=== PATIENT | male | born 1950 | race Caucasian/White ===

== ENCOUNTER 2016-07-11 01:03 | Emergency (ER) | payer OTHER, BC ==
--- NOTE | 2016-07-11 01:10 | PDOC ---
History of Present Illness - General Chief Complaint: Pain, Acute Stated Complaint: PAIN Time Seen by Provider: 07/11/16 01:09 - History of Present Illness Initial Comments: 07/11/16 01:23 This 66-year-old man with recent history of Lyme disease but no other significant past medical history presents with right chest wall pain after trauma. Approximately 18 hours prior to presentation, patient slipped as he was walking down a flight of stairs. Although he reached with his right hand to steady himself on the banister, he did slip down several stairs. There was no loss of consciousness. He is complaining of pain/tenderness anterior mid right chest and below the right scapula. He denies shortness of breath or cough. He also has mild pain right lateral upper neck region. He denies abdominal pain/lower extremity pain/balance problems or vertigo Patient was seen earlier this week by infectious disease doctors for left axillary rash. Patient had removed a tick from the area few days prior to onset of the rash. The patient is currently taking antibiotics for early Lyme disease. Past History - Past Medical History Allergies/Adverse Reactions: Allergies Allergy/AdvReac Type Severity Reaction Status Date / Time No Known Allergies Allergy Unverified 07/11/16 01:06 Home Medications: Ambulatory Orders Famotidine [Pepcid] 20 mg PO DAILY 07/11/16 Tramadol HCl 50 mg PO TID PRN #20 tablet MDD 3 tabs 07/11/16 Review of Systems - Review of Systems Able to Perform ROS?: Yes Comments:: 12 point review of systems is negative except for what is noted in the history of present illness *Physical Exam - Physical Exam Comments: GENERAL: Adult male, alert and oriented 3, in mild distress secondary to right chest wall pain HEAD: Normal with no signs of trauma. EYES: PERRLA, EOMI, sclera anicteric, conjunctiva clear. ENT: Ears normal, nares patent, oropharynx clear without exudates. Dry mucous membranes. NECK: Normal range of motion, supple without lymphadenopathy, JVD, or masses. LUNGS: Breath sounds equal, clear to auscultation bilaterally. No wheezes, and no crackles. No rubs heard CHEST WALL: Point tenderness ribs 5, 6, 7 anterior axillary line without crepitus or step offs palpated Tenderness right subscapular region without crepitus or step off palpated 20 cm by 30 cm erythematous, nonraised rash of the left axillary region; faint erythematous central area HEART:Regular rate and rhythm, normal S1 and S2 without murmur, rub or gallop. ABDOMEN:.normal bowel sounds No guarding,tenderness or rebound.No masses No distention. EXTREMITIES: Normal range of motion, no edema. No clubbing or cyanosis. No erythema, or tenderness. NEUROLOGICAL: Cranial nerves II through XII grossly intact. Normal speech. No focal neurological deficits. MUSCULOSKELETAL: Back non-tender to palpation, no CVA tenderness Medical Decision Making - Medical Decision Making Cervical spine and right rib series performed to evaluate for acute injury. Cervical spine x-ray preliminary interpretation by me shows areas of DJD but no acute fracture/dislocation. Right rib series shows nondisplaced fracture versus old fracture of posterior right seventh rib; no other fractures/dislocation seen on my preliminary interpretation. PA chest x-ray revealed no evidence of effusion/infiltrates or other acute process. Results discussed with the patient. Patient had been given Toradol 60 mg IM prior to the x-ray studies. He has had some relief of his pain and asked for stronger pain medication, especially for night use. Patient will be given a prescription for tramadol 50 mg (#20) to be used up to 3 times a day as needed for pain. The patient should return to the emergency room if he has shortness of breath/ wheezing/severe cough/fever Patient states although his blood pressure has been elevated tonight, it was normal when he was seen in doctor's office for his rash earlier this week. Blood pressure elevation likely secondary to chest wall pain Patient currently does not have a general medical doctor. He is seeing infectious disease doctors ( Dr. Davide paul) for his ECM rash . Although he can follow-up with them, he also had intended to see Dr. Romero ,who was his uncle's doctor, for general medical care. He should follow-up with either of those doctors within the next week. *DC/Admit/Observation/Transfer Diagnosis at time of Disposition: Rib fracture Qualifiers: Encounter type: initial encounter Rib fracture type: single rib Fracture type: closed Laterality: right Qualified Code(s): S22.31XA - Fracture of one rib, right side, initial encounter for closed fracture Contusion of ribs Qualifiers: Encounter type: initial encounter Laterality: right Qualified Code(s): S20.211A - Contusion of right front wall of thorax, initial encounter Neck contusion Qualifiers: Encounter type: initial encounter Qualified Code(s): S10.93XA - Contusion of unspecified part of neck, initial encounter - Discharge Dispostion Disposition: HOME Condition at time of disposition: Stable - Prescriptions Prescriptions: Tramadol HCl 50 mg PO TID PRN #20 tablet MDD 3 tabs PRN Reason: Severe Pain - Referrals Referrals: Bertrand Romero MD [Staff Physician] - - Patient Instructions Printed Discharge Instructions: DI for Rib Fracture Additional Instructions: Avoid strenuous activity for the next several days Tylenol/Motrin/Aleve as needed for intg-ri-[id number] pain Tramadol 50 mg up to 3 times a day as needed for severe pain (may cause sedation ) Return to ER if you have severe pain/fever/shortness of breath/persisting cough Follow-up with Dr. Augustine as scheduled Follow-up with general medical doctor within the next week
[2016-07-11 01:18] VITALS: BP 162/106; PULSE 68; TEMP 97.6; BMI 29.9
[2016-07-11] MEDS ORDERED: KETOROLAC TROMETHAMINE 60 MG/2 ML VIAL IM ONE (01:47)
[2016-07-11] MEDS ORDERED: KETOROLAC TROMETHAMINE 60 MG/2 ML VIAL ONE (01:52)
[2016-07-11] MEDS ORDERED: ACETAMINOPHEN 325 MG TABLET (FP) PO ONE (02:38)
[2016-07-11] MEDS ORDERED: ACETAMINOPHEN 325 MG TABLET (FP) ONE (02:39)
== END 2016-07-11 03:02 | disposition home or self-care (01) ==
LOC: FER 01:03
PROC: 3E0233Z Introduction of Anti-inflammatory into Muscle, Percutaneous Approach (ICD-10-PCS; principal; 2016-07-11)
DX: S22.31XA Fracture of one rib, right side, initial encounter for closed fracture (principal); S20.211A Contusion of right front wall of thorax, initial encounter; S10.93XA Contusion of unspecified part of neck, initial encounter; W10.9XXA Fall (on) (from) unspecified stairs and steps, initial encounter; Y93.89 Activity, other specified; Y92.9 Unspecified place or not applicable; A69.20 Lyme disease, unspecified
CPT/HCPCS: 71101-TC-RT; 72050-TC; 96372; 99281-25

== ENCOUNTER 2016-07-13 01:21 | Emergency (ER) | payer OTHER, BC ==
[2016-07-13 01:31] VITALS: BP 191/108; PULSE 64; TEMP 97.9; BMI 29.1
[2016-07-13] MEDS ORDERED: KETOROLAC TROMETHAMINE 60 MG/2 ML VIAL IM ONE (01:31)
--- NOTE | 2016-07-13 01:35 | PDOC ---
History of Present Illness - General Chief Complaint: Pain, Acute Stated Complaint: SLIPPED AND FELL WEDNESDAY PAIN TO RIGHT RIB CAGE ARE Time Seen by Provider: 07/13/16 01:29 - History of Present Illness Initial Comments: 07/13/16 01:37 This 66-year-old man with a history of slipping down steps 2 days ago, seen here at that time presents with persistent right chest wall pain/tenderness. Patient had rib series x-ray at presentation which was interpreted as showing no acute rib fractures and no other acute process. Patient was discharged with instructions to use nonsteroidal anti-inflammatory medications or Tylenol for mild pain and tramadol for more severe pain. Patient has used tramadol 3 times a day but has not used any anti-inflammatory medications. He has felt intermittent relief of the pain but notes more severe pain at night that has kept him from sleeping. He has not had any shortness of breath, fever, cough. Past History - Past Medical History Allergies/Adverse Reactions: Allergies Allergy/AdvReac Type Severity Reaction Status Date / Time No Known Allergies Allergy Verified 07/13/16 01:24 Home Medications: Ambulatory Orders Famotidine [Pepcid] 20 mg PO DAILY 07/11/16 Tramadol HCl 50 mg PO TID PRN #20 tablet MDD 3 tabs 07/11/16 Doxycycline Hyclate [Vibramycin -] 100 mg PO DAILY 07/13/16 Ketorolac Tromethamine [Toradol] 10 mg PO TID PRN #15 tablet 07/13/16 GI Disorders: Yes (GERD) - Psycho/Social/Smoking Cessation Hx Anxiety: No Suicidal Ideation: No Smoking History: Never smoked Review of Systems - Review of Systems Able to Perform ROS?: Yes Comments:: 12 point review of systems is negative except for what is noted in the history of present illness *Physical Exam - Physical Exam Comments: GENERAL: The patient is awake, alert, and fully oriented, in mild distress secondary to right-sided chest wall pain Vital signs as noted. HEAD: Normal with no signs of trauma. EYES: Pupils equal, round and reactive to light, extraocular movements intact, sclera anicteric, conjunctiva clear with no pallor. ENT: moist mucous membranes. Ears normal, nares patent, oropharynx clear without exudates. NECK: Normal range of motion, supple without lymphadenopathy, JVD, or masses. LUNGS: Breath sounds equal, clear to auscultation bilaterally. No wheeze/ crackles. CHEST WALL: Moderate tenderness without crepitus or step offs right sixth and seventh ribs anterior axillary line Mild tenderness to palpation just below point of right scapula; no crepitus or step off HEART: Regular rate and rhythm, normal S1 and S2 without murmur or rub. ABDOMEN: Soft/nontender/nondistended. BS wnl. No guarding or rebound. No palpable masses. No hepatosplenomegaly. EXTREMITIES: Normal range of motion, no edema. No clubbing or cyanosis. No cords, erythema, or tenderness. NEUROLOGICAL: Cranial nerves II through XII grossly intact. Normal speech, normal gait. PSYCH: Normal mood, normal affect. SKIN: Warm, Dry, normal turgor, no rashes or lesions noted. Medical Decision Making - Medical Decision Making This 66-year-old man, known to me from previous ER visit, presents with persistent chest wall pain after trauma 2 days ago. Official reading of x-ray shows only old right posterior rib fracture. No new rib fractures were seen on x-ray 2 days ago. Patient has been using tramadol only for pain relief; he states that he has had intermittent relief with persistent pain especially at night. He has had no cough/shortness of breath/fever. He has had no new trauma to the area. Exam today shows clear lung franz and no new area of tenderness on palpation. Patient has requested Toradol IM 60 mg. He states that when he was given this 2 days ago he slept through the night and had significant analgesia for several hours. Toradol 60 mg IM administered. Alternating nonsteroidal anti-inflammatory medications with tramadol discussed with the patient. Although he has a history of GERD, he has taken ibuprofen [id number] in the past without serious side effects. Patient has been advised to alternate anti-inflammatory medication ([id number] such as Advil/Motrin or Aleve) with tramadol. He should always take the anti- inflammatory medication with food. Also, a small (#15) prescription for Toradol 10 mg to be used 3 times a day as needed will be sent to the patient's pharmacy a prescription strength NSAID as needed. Patient again urged to come back to the emergency room if he has shortness of breath/cough/fever. Otherwise, he should follow-up with his PMD, Dr. Romero within the next several days. *DC/Admit/Observation/Transfer Diagnosis at time of Disposition: Contusion of ribs Qualifiers: Encounter type: subsequent encounter Laterality: right Qualified Code(s): S20.211D - Contusion of right front wall of thorax, subsequent encounter - Discharge Dispostion Disposition: HOME Condition at time of disposition: Stable - Prescriptions Prescriptions: Ketorolac Tromethamine [Toradol] 10 mg PO TID PRN #15 tablet PRN Reason: Pain - Patient Instructions Printed Discharge Instructions: DI for Rib Contusion Additional Instructions: Can alternate tramadol with Toradol 10 mg up to 3 times a day as needed Take Toradol with food Continue other medications as prescribed Avoid strenuous exercise involving upper body Follow-up with general doctor within the next 4 days Return to ER if you have shortness of breath, cough or high fever
== END 2016-07-13 01:42 | disposition home or self-care (01) ==
LOC: FER 01:21
PROC: 3E0233Z Introduction of Anti-inflammatory into Muscle, Percutaneous Approach (ICD-10-PCS; principal; 2016-07-13)
DX: S20.211D Contusion of right front wall of thorax, subsequent encounter (principal); W10.9XXD Fall (on) (from) unspecified stairs and steps, subsequent encounter; Y92.9 Unspecified place or not applicable; Y93.89 Activity, other specified
CPT/HCPCS: 96372; 99281-25

== ENCOUNTER 2016-07-17 02:12 | Inpatient (IN) | payer OTHER, BC ==
--- NOTE | 2016-07-17 03:19 | HP ---
CIWA Score - CIWA Score Nausea/Vomitin Muscle Tremors: 3 Anxiety: 4-Mod. Anxious/Guarded Agitation: 4-Moderately Restless Paroxysmal Sweats: 2 Orientation: 1-Uncertain about Date Tacttile Disturbances: 0-None Auditory Disturbances: 0-None Visual Disturbances: 1-Very Mild Sensitivity Headache: 1-Very Mild CIWA-Ar Total Score: 19 Admission ROS BHS - HPI Chief Complaint: WITHDRAWAL SYMPTOMS Allergies/Adverse Reactions: Allergies Allergy/AdvReac Type Severity Reaction Status Date / Time No Known Allergies Allergy Verified 07/17/16 06:32 History of Present Illness: 66 Y.O. MAN WITH AN EXTENSIVE HISTORY OF ALCOHOL AND DRUG DEPENDENCE IS HERE SEEKING DETOX. THIS IS HIS FIRST ADMISSION INTO DETOX. HE WAS TRANSFERRED FROM THE ER AT [facility] WHERE HE WAS BEING EVALUATED FOR RIGHT RIB PAIN. Exam Limitations: No Limitations - Ebola screening Have you traveled outside of the country in the last 21 days: No - Review of Systems Constitutional: Loss of Appetite, Malaise EENT: reports: No Symptoms Reported Respiratory: reports: No Symptoms reported Cardiac: reports: No Symptoms Reported GI: reports: Poor Appetite : reports: No Symptoms Reported Musculoskeletal: reports: Back Pain, Other (Right rib pain) Integumentary: reports: No Symptoms Reported Neuro: reports: Headache, Tremors Endocrine: reports: No Symptoms Reported Hematology: reports: No Symptoms Reported Psychiatric: reports: Agitated Other Systems: Reviewed and Negative Patient History - Patient Medical History Hx Anemia: No Hx Asthma: No Hx Chronic Obstructive Pulmonary Disease (COPD): No Hx Cancer: No Hx Cardiac Disorders: No Hx Congestive Heart Failure: No Hx Hypertension: No Hx Hypercholesterolemia: No Hx Pacemaker: No HX Cerebrovascular Accident: No Hx Seizures: No Hx Dementia: No Hx Diabetes: No Hx Gastrointestinal Disorders: Yes (GERD) Hx Liver Disease: No Hx Genitourinary Disorders: No Hx Sexually Transmitted Disorders: No Hx Renal Disease (ESRD): No Hx Thyroid Disease: No Hx Human Immunodeficiency Virus (HIV): No Hx Hepatitis C: No Hx Depression: No Hx Suicide Attempt: No Hx Bipolar Disorder: No Hx Schizophrenia: No - Patient Surgical History Past Surgical History: No - PPD History Previous Implant?: Yes Documented Results: Negative w/o proof PPD to be Administered?: Yes - Reproductive History Patient is a Female of Child Bearing Age (11 -55 yrs old): No - Smoking Cessation Smoking history: Never smoked Have you smoked in the past 12 months: No If you are a former smoker, when did you quit?: 1979 Hx Chewing Tobacco Use: No - Substance & Tx. History Hx Alcohol Use: Yes Hx Substance Use: No Substance Use Type: Alcohol Hx Substance Use Treatment: No - Substances Abused Alcohol Route: Oral Frequency: 3-6 times per week Amount used: 1 pint of liquor Age of first use: 11 Date of Last Use: 07/16/16 Family Disease History - Family Disease History Family Disease History: Diabetes: Grandparent, [place]: Grandparent, Other: Father ( ETOH DEPENDENT-) Admission Physical Exam [facility] - Vital Signs Vital Signs: Last Vital Signs Temp Pulse Resp BP Pulse Ox 97.5 F L 68 16 159/86 07/17/16 03:38 07/17/16 03:38 07/17/16 03:38 07/17/16 03:38 - Physical General Appearance: Yes: Tremorous, Irritable, Sweating, Anxious HEENTM: Yes: Hearing grossly Normal, Normocephalic, Normal Voice Respiratory: Yes: Chest Non-Tender, Lungs Clear, Normal Breath Sounds, No Respiratory Distress, No Accessory Muscle Use Neck: Yes: No masses,lesions,Nodules, Trachea in good position Breast: Yes: Breast Exam Deferred Cardiology: Yes: Regular Rhythm, Regular Rate Abdominal: Yes: Non Tender, Flat, Soft Genitourinary: Yes: Other (No complaints reported) Back: Yes: Normal Inspection Musculoskeletal: Yes: Other (RIGHT RIB PAIN) Extremities: Yes: Tremors Neurological: Yes: Alert, Normal Response Integumentary: Yes: Normal Color, Dry, Warm Lymphatic: Yes: Within Normal Limits - Addiitonal Findings: Last Vital Signs - Diagnostic (1) Contusion of ribs Current Visit: Yes Status: Acute Qualifiers: Encounter type: subsequent encounter Laterality: right Qualified Code(s): S20.211D - Contusion of right front wall of thorax, subsequent encounter (2) Alcohol dependence with uncomplicated withdrawal Current Visit: Yes Status: Chronic Cleared for Admission [facility] - Detox or Rehab [facility] Level of Care: Medically Managed Detox Regimen/Protocol: Librium [facility] Breath Alcohol Content Breath Alcohol Content: 0 Vital Signs - Vital Signs Vital Signs Refused: No Temperature: 97.5 F Temperature Source: Oral Pulse Rate: 68 Respiratory Rate: 16 Blood Pressure: 159/86 BP Location: Left Arm Blood Pressure Position: Sitting - Height Height: 5 ft 5 in - Weight Weight: 182 lb Weight Measurement Method: Standing Scale Body Mass Index (BMI): 30.2 Urine Drug Screen - Test Device Lot Number: [id number] Expiration Date: 03/17/18 - Control Is Test Valid: Yes - Results Drug Screen Negative: Yes
[2016-07-17 03:38] VITALS: BMI 30.2
[2016-07-17] MEDS ORDERED: IBUPROFEN 400 MG TABLET (FP) PO PRN (03:49)
[2016-07-17] MEDS ORDERED: ACETAMINOPHEN 325 MG TABLET (FP) PO PRN (03:49)
[2016-07-17] MEDS ORDERED: LOPERAMIDE HCL 2 MG CAPSULE PO PRN (03:49)
[2016-07-17] MEDS ORDERED: diphenhydrAMINE HCL 50 MG CAPSULE PO PRN (03:49)
[2016-07-17] MEDS ORDERED: chlordiazePOXIDE HCL 25 MG CAPSULE PO PRN (03:49)
[2016-07-17] MEDS ORDERED: MAG HYDROX/AL HYDROX/SIMETH 30 ML UNIT-DOSE CUP PO PRN (03:49)
[2016-07-17] MEDS ORDERED: guaiFENesin/D-METHORPHAN HB 10 ML UNIT-DOSE CUPS PO PRN (03:49)
[2016-07-17] MEDS ORDERED: MAGNESIUM CITRATE 300 ML BOTTLE PO PRN (03:49)
[2016-07-17] MEDS ORDERED: MAGNESIUM HYDROX 2400MG/30ML ORAL SUSPENSION 30 ML CUP PO PRN (03:49)
[2016-07-17] MEDS ORDERED: hydrOXYzine PAMOATE 50 MG CAPSULE (FP) PO PRN (03:49)
[2016-07-17] MEDS ORDERED: MENTHOL/PHENOL 1 EACH UD MM PRN (03:49)
[2016-07-17] MEDS ORDERED: P-EPHED 60MG/TRIPROLIDI 2.5MG TABLET PO PRN (03:49)
[2016-07-17] MEDS ORDERED: chlordiazePOXIDE HCL 25 MG CAPSULE PO ONE (03:49)
[2016-07-17] MEDS ORDERED: CYCLOBENZAPRINE HCL 10 MG TABLET (FP) PO PRN (03:54)
[2016-07-17] MEDS: chlordiazePOXIDE HCL 25 MG CAPSULE PO SCH ×2 (06:25→10:32)
[2016-07-17] MEDS ORDERED: IBUPROFEN 600 MG TABLET (FP) PO PRN (07:49)
--- NOTE | 2016-07-17 09:50 | EKG ---
Test Reason : Blood Pressure : / mmHG Vent. Rate : 063 BPM Atrial Rate : 063 BPM P-R Int : 150 ms QRS Dur : 112 ms QT Int : 416 ms P-R-T Axes : 059 -44 011 degrees QTc Int : 425 ms NORMAL SINUS RHYTHM LEFT AXIS DEVIATION INCOMPLETE RIGHT BUNDLE BRANCH BLOCK VOLTAGE CRITERIA FOR LEFT VENTRICULAR HYPERTROPHY ABNORMAL ECG WHEN COMPARED WITH ECG OF 17-JUL-2016 00:56, NO SIGNIFICANT CHANGE WAS FOUND Confirmed by ARNOLD JOE MD ([id number]) on 07/17/2016 9:50:28 AM Referred By: Confirmed By:ARNOLD JOE MD
[2016-07-17] MEDS ORDERED: PRENATAL VITAMINS W/ FOLIC ACID TABLET (FP) PO SCH (10:00)
[2016-07-17] MEDS ORDERED: DOXYCYCLINE HYCLATE 100 MG TABLET PO SCH (10:00)
[2016-07-17 10:27] LABS: MCH 32.3 pg (25.7-33.7); MCHC 33.6 g/dl (32.0-35.9); MEAN CELL VOLUME 96.2 fl (80-96); MEAN PLT VOLUME 7.7 fl (7.5-11.1); PLATELET COUNT 334 K/MM3 (134-434); RDW 12.4 % (11.9-15.9); WHITE BLOOD COUNT 7.5 K/mm3 (4.0-10.0)
[2016-07-17 10:58] VITALS: BP 157/88; PULSE 79; TEMP 97.9
[2016-07-17 10:58] LABS: ALBUMIN 3.2 g/dl (3.4-5.0); ALK PHOS 54 U/L (45-117); ANION GAP 10 (8-16); BILIRUBIN,TOTAL 0.7 mg/dL (0.2-1.0); CALCIUM 9.1 mg/dL (8.5-10.1); CO2 29 mmol/L (21-32); GLUCOSE,RANDOM 76 mg/dL (74-106); SGOT/AST 19 U/L (15-37); SGPT/ALT 29 U/L (12-78); TOT PROT 6.4 g/dl (6.4-8.2)
--- NOTE | 2016-07-17 11:45 | DS ---
[facility] Detox Discharge Summary Admission Date: 07/17/16 Discharge Date: 07/17/16 - History Present History: Alcohol Dependence Additional Comments: PT BECAME VERY IRRITABLE FROM BEGINNING OF SHIFT COMPLAINING ABOUT THE NEED TO LEAVE TO GET HIS CAR FROM WHERE HE LEFT IT IN [place]. PT ALSO STATES HE NEEDS TO GO FEED HIS CAT AND SEE HIS DOCTOR. ALERT O X 3. NAD. Pertinent Past History: S/P NECK CONTUSION S/P RIB FRACTURE GERD - Physical Exam Results Vital Signs: Vital Signs Temperature 97.9 F 07/17/16 10:57 Pulse Rate 79 07/17/16 10:57 Respiratory Rate 20 07/17/16 10:57 Blood Pressure 157/88 07/17/16 10:57 O2 Sat by Pulse Oximetry (%) Pertinent Admission Physical Exam Findings: WITHDRAWAL SX Laboratory Last Values WBC 7.5 K/mm3 (4.0-10.0) 07/17/16 07:50 RBC 4.71 M/mm3 (4.00-5.60) 07/17/16 07:50 Hgb 15.2 GM/dL (11.7-16.9) 07/17/16 07:50 Hct 45.3 % (35.4-49) 07/17/16 07:50 MCV 96.2 fl (80-96) H 07/17/16 07:50 MCHC 33.6 g/dl (32.0-35.9) 07/17/16 07:50 RDW 12.4 % (11.9-15.9) 07/17/16 07:50 Plt Count 334 K/MM3 (134-434) 07/17/16 07:50 MPV 7.7 fl (7.5-11.1) 07/17/16 07:50 Sodium 138 mmol/L (136-145) 07/17/16 07:50 Potassium 4.2 mmol/L (3.5-5.1) 07/17/16 07:50 Chloride 99 mmol/L (98-107) 07/17/16 07:50 Carbon Dioxide 29 mmol/L (21-32) 07/17/16 07:50 Anion Gap 10 (8-16) 07/17/16 07:50 BUN 16 mg/dL (7-18) 07/17/16 07:50 Creatinine 1.0 mg/dL (0.7-1.3) 07/17/16 07:50 Creat Clearance w eGFR > 60 (>60) 07/17/16 07:50 Random Glucose 76 mg/dL (74-106) 07/17/16 07:50 Calcium 9.1 mg/dL (8.5-10.1) 07/17/16 07:50 Total Bilirubin 0.7 mg/dL (0.2-1.0) 07/17/16 07:50 AST 19 U/L (15-37) 07/17/16 07:50 ALT 29 U/L (12-78) 07/17/16 07:50 Alkaline Phosphatase 54 U/L (45-117) 07/17/16 07:50 Total Protein 6.4 g/dl (6.4-8.2) 07/17/16 07:50 Albumin 3.2 g/dl (3.4-5.0) L 07/17/16 07:50 - Treatment Hospital Course: Discharged Condition Good - Medication Discharge Medications: Ambulatory Orders Famotidine [Pepcid] 20 mg PO DAILY 07/11/16 Doxycycline Hyclate [Vibramycin -] 100 mg PO DAILY 07/13/16 Cyclobenzaprine HCl [Flexeril 10 mg] 10 mg PO BID #40 tablet 07/17/16 Ibuprofen [Motrin -] 400 mg PO ONCE 07/17/16 - Diagnosis (1) Alcohol dependence with uncomplicated withdrawal Status: Acute (2) GERD (gastroesophageal reflux disease) Status: Chronic Qualifiers: Esophagitis presence: without esophagitis Qualified Code(s): K21.9 - Gastro-esophageal reflux disease without esophagitis - AMA Did Patient Leave Against Medical Advice: Yes (AMA)
[2016-07-17 13:21] LABS: HIV 1 & 2 AB NEGATIVE; HIV 1 AGp24 NEGATIVE
[2016-07-17] MEDS ORDERED: CYCLOBENZAPRINE HCL 10 MG TABLET (FP) PO SCH (14:00)
[2016-07-17] MEDS ORDERED: THIAMINE HCL 100 MG TABLET (FP) PO SCH (22:00)
[2016-07-18] MEDS ORDERED: chlordiazePOXIDE HCL 25 MG CAPSULE PO SCH (05:00)
[2016-07-19] MEDS ORDERED: chlordiazePOXIDE 5 MG CAPSULE PO SCH (05:00)
[2016-07-20] MEDS ORDERED: chlordiazePOXIDE HCL 10 MG CAPSULE PO SCH (05:00)
== END 2016-07-17 11:25 | disposition left against medical advice (07) | DRG 894 ==
LOC: YASAS 02:12 → Y3N 03:00
PROVIDERS: ADMIT Internal Medicine; ATTEND Internal Medicine
PROC: HZ2ZZZZ Detoxification Services for Substance Abuse Treatment (ICD-10-PCS; principal; 2016-07-17)
DX: F10.230 Alcohol dependence with withdrawal, uncomplicated (principal); K21.9 Gastro-esophageal reflux disease without esophagitis; S20.211D Contusion of right front wall of thorax, subsequent encounter; W01.0XXD Fall on same level from slipping, tripping and stumbling without subsequent striking against object, subsequent encounter
CPT/HCPCS: 36415; 80053; 85027; 86593; 86803; 87389; 93005; 93010; 99282-25

== ENCOUNTER 2017-04-28 10:24 | Emergency (ER) | payer OTHER, BC ==
[2017-04-28 10:36] VITALS: PULSE 78; TEMP 98.2; BMI 27.3
--- NOTE | 2017-04-28 11:05 | PDOC ---
History of Present Illness - General Chief Complaint: Cold Symptoms Stated Complaint: cold symptoms, Time Seen by Provider: 04/28/17 10:28 - History of Present Illness Initial Comments: 04/28/17 10:57 Chief complaint: Nasal congestion, purulent discharge History of present illness: Patient states that since Wednesday night he has had congestion, primarily in the right side of the nose, with green nasal discharge , and mild facial pain on that side. Review of systems: No fever/chills, sore throat, cough, chest pain, shortness of breath, abdominal pain, nausea, vomiting, diarrhea, visual or focal neurologic symptoms, unsteadiness of gait. Asked medical history: Dyspepsia for which he takes Pepcid. Otherwise no active medical problems. Specifically, denies diabetes, high blood pressure, coronary artery disease or other cardiac problems. Social history: Retired, moderate alcohol intake, admits for mixed drinks each day, no tobacco or other drugs. Lives alone. Appears well 10 cares for self Family history: Brother recently after a heart transplant 12 years ago. Exact nature of the cardiac illness is unknown. Physical exam: Alert and oriented well-developed well-nourished no acute distress cooperative Afebrile, vital signs normal except for mildly elevated blood pressure HEENT: There is mild tenderness over the right maxillary sinus, right nasal congestion, no discharge or masses within the nose. Throat is clear. Ears are clear. Neck supple without bruit mass or nodes Chest clear to P&A with full breath sounds throughout bilaterally. No wheezes rales or rhonchi CV S1 and S2 normal without murmur rub or gallop pulses full and symmetric no JVD or edema Abdomen benign Neurological intact Extremities no CCE Impression: Probable sinusitis, URI. Elevated blood pressure, possibly due to mild anxiety associated with ER visit Plan: Antibiotics, Tylenol, and monitor blood pressure. Past History - Past Medical History Allergies/Adverse Reactions: Allergies Allergy/AdvReac Type Severity Reaction Status Date / Time No Known Allergies Allergy Verified 04/28/17 10:26 Home Medications: Ambulatory Orders Famotidine [Pepcid] 20 mg PO DAILY 07/11/16 Cefuroxime Axetil [Ceftin -] 500 mg PO Q12H #20 tablet 04/28/17 Anemia: No Asthma: No Cancer: No Cardiac Disorders: No CVA: No COPD: No CHF: No Dementia: No Diabetes: No GI Disorders: Yes (GERD) Disorders: No HTN: No Hypercholesterolemia: No Liver Disease: No Seizures: No Thyroid Disease: No Other medical history: lyme disease - Suicide/Smoking/Psychosocial Hx Smoking History: Never smoked Have you smoked in the past 12 months: No If you are a former smoker, when did you quit?: 1979 Information on smoking cessation initiated: No Hx Alcohol Use: Yes (daily 2 drinks) Drug/Substance Use Hx: No Substance Use Type: Alcohol Hx Substance Use Treatment: No *Physical Exam - Vital Signs Last Vital Signs Temp Pulse Resp BP Pulse Ox 98.2 F 78 20 174/104 98 04/28/17 10:25 04/28/17 10:25 04/28/17 10:25 04/28/17 10:25 04/28/17 10:25 Medical Decision Making - Medical Decision Making 04/28/17 11:23 Blood pressure improved. However, advised to follow-up with primary physician for further blood pressure monitoring decreased alcohol recommended. *DC/Admit/Observation/Transfer Diagnosis at time of Disposition: Sinusitis Qualifiers: Sinusitis location: maxillary Chronicity: acute Recurrence: non-recurrent Qualified Code(s): J01.00 - Acute maxillary sinusitis, unspecified - Discharge Dispostion Disposition: HOME Condition at time of disposition: Stable Admit: No - Prescriptions Prescriptions: Cefuroxime Axetil [Ceftin -] 500 mg PO Q12H #20 tablet - Referrals - Patient Instructions Printed Discharge Instructions: DI for Sinusitis Additional Instructions: Blood pressure was mildly elevated. It is recommended that you decreased alcohol consumption and have your blood pressure checked again in 2-3 days by your primary physician. Careful blood pressure monitoring would be recommended - Post Discharge Activity
[2017-04-28 11:22] VITALS: BP 164/97
== END 2017-04-28 11:50 | disposition home or self-care (01) ==
LOC: FER 10:24
DX: J01.00 Acute maxillary sinusitis, unspecified (principal); K21.9 Gastro-esophageal reflux disease without esophagitis; Z87.891 Personal history of nicotine dependence
CPT/HCPCS: 99282-25

== ENCOUNTER 2017-10-31 11:36 | Emergency (ER) | payer OTHER, BC ==
[2017-10-31 12:01] VITALS: BP 160/97; PULSE 70; TEMP 97.8; BMI 27.3
--- NOTE | 2017-10-31 12:11 | PDOC ---
Attending Attestation - Resident Resident Name: Jamshid Cabrera - ED Attending Attestation I have performed the following: I have examined & evaluated the patient, The case was reviewed & discussed with the resident, I agree w/resident's findings & plan, Exceptions are as noted - HPI HPI: 67 yo M history EtOH abuse presents s/p fall onto his L anterior ribs. Mechanical fall, no LOC. Occurred yesterday. He notes localized tenderness. No SOB. - Physicial Exam PE: GENERAL: Awake, alert, and fully oriented, in no acute distress HEAD: No signs of trauma EYES: PERRLA, EOMI. +Scleral icterus. ENT: Auricles normal inspection, hearing grossly normal, nares patent, oropharynx clear without exudates. Moist mucosa NECK: Normal ROM, supple, no lymphadenopathy, JVD, or masses LUNGS: Breath sounds equal, clear to auscultation bilaterally. No wheezes, and no crackles HEART: Regular rate and rhythm, normal S1 and S2, no murmurs, rubs or gallops ABDOMEN: Firm, protuberant, +fluid save. Normoactive bowel sounds. No guarding , no rebound. No masses MSK: +Tenderness at L anterior inferior rib margin with slight swelling, no ecchymosis. Extremities with normal range of motion, no edema. No clubbing or cyanosis. No cords, erythema, or tenderness NEUROLOGICAL: Cranial nerves II through XII grossly intact. Normal speech, normal gait SKIN: Warm, Dry, normal turgor, no rashes or lesions noted. - Medical Decision Making Pt states that he has developed the enlarging abdomen over the past year. He did not notice the scleral icterus. Will obtain rib series to r/o fx and ptx. Will obtain labs to check LFTs. 10/31/17 14:09 TBili elevated, likely due to cirrhosis. No abd pain, no clinical complaints that would indicate gallbladder pathology. Will DC with outpatient clinic f/u.
[2017-10-31] MEDS ORDERED: LORazepam 1 MG TABLET PO ONE (12:27)
[2017-10-31] MEDS ORDERED: LORazepam 0.5 MG TABLET ONE (12:53)
--- NOTE | 2017-10-31 13:04 | PDOC ---
History of Present Illness - General Chief Complaint: Injury Stated Complaint: LEFT CHEST WALL PAIN S/P FALL Time Seen by Provider: 10/31/17 12:02 History Source: Patient, Old Records Exam Limitations: No Limitations - History of Present Illness Initial Comments: 67 y/o male presenting to [facility] complaining of left sided anterior chest wall pain. Symptoms started yesterday evening after falling over cat onto flat concrete sidewalk. Pain worse this morning after getting out of bed. Pt denies LOC, anterograde amnesia, posterograde amnesia, or nausea/vomiting. Denies headache, neck pain, dizziness, syncope, abdominal pain, diarrhea, or constipation. Pt endorses h/o rib fracture in past. Endorses consuming 4-6 beers last evening. Denies street drugs. PCP: None Medical Hx: - GERD - Chronic EtOH Abuse Surgical Hx: - Pt denies surgical history. Past History - Past Medical History Allergies/Adverse Reactions: Allergies Allergy/AdvReac Type Severity Reaction Status Date / Time No Known Allergies Allergy Verified 10/31/17 11:37 Home Medications: Ambulatory Orders Famotidine [Pepcid] 20 mg PO DAILY 07/11/16 Ibuprofen [Motrin -] 400 mg PO PRN PRN 10/31/17 Anemia: No Asthma: No Cancer: No Cardiac Disorders: No CVA: No COPD: No CHF: No Dementia: No Diabetes: No GI Disorders: Yes (GERD) Disorders: No HTN: No Hypercholesterolemia: No Liver Disease: No Seizures: No Thyroid Disease: No - Suicide/Smoking/Psychosocial Hx Smoking History: Never smoked Have you smoked in the past 12 months: No If you are a former smoker, when did you quit?: 1979 Information on smoking cessation initiated: No Hx Alcohol Use: Yes (4 DRINKS PER DAY) Drug/Substance Use Hx: No Substance Use Type: Alcohol Hx Substance Use Treatment: No Review of Systems - Review of Systems Able to Perform ROS?: Yes Is the patient limited Wolof proficient: No Constitutional: No: Chills, Diaphoresis, Fever Respiratory: No: Shortness of Breath Cardiac (ROS): Yes: See HPI. No: Chest Pain, Lightheadedness, Palpitations, Syncope ABD/GI: No: Constipated, Diarrhea, Nausea, Vomiting, Abdominal cramping Musculoskeletal: Yes: See HPI, Muscle Pain Integumentary: Yes: See HPI, Lesions. No: Bruising, Erythema Neurological: No: Headache, Numbness, Paresthesia, Tingling, Weakness, Ataxia, Dizziness Hematologic/Lymphatic: No: Easy Bleeding, Easy Bruising *Physical Exam - Vital Signs Last Vital Signs Temp Pulse Resp BP Pulse Ox 97.8 F 70 20 160/97 96 10/31/17 11:36 10/31/17 11:36 10/31/17 11:36 10/31/17 11:36 10/31/17 11:36 - Physical Exam Comments: Constitutional: Well-developed, well-nourished male in no acute distress. Found standing upright next to hospital bed. Alert and oriented x4. Answered all questions appropriately and completely. Speech was non-labored, non-pressured. Head: Normocephalic. No obvious external signs of trauma. No periorbital ecchymosis or Battles sign. Eyes: Sclerae icterus. Conjunctiva moist and not injected. EARS: Hearing grossly intact. No discharge. NOSE: No nasal discharge. Neck: Supple, trachea is midline. Cardiovascular: Regular rate and regular rhythm. No murmur, rubs, clicks, or gallops. Peripheral pulses: Radial pulses full. Respiratory: Breathing unlabored. Equal chest rise and fall. Clear to auscultation bilaterally. No stridor, no wheezing, no rhonchi. MSK/Skin: Deformity to left anterior chest wall without overlying skin lesions; tender to palpation. Pain with active and passive movement of left arm without subjective tenderness to anterior or posterior aspects of left shoulder or clavicle. Skin otherwise warm and dry. No spider angiomas. Gastrointestinal: abdomen is taught but non-tender. No pulsatile masses. No overlying skin lesions or obvious signs of trauma. Neuro: Alert and oriented. Moving all four extremities spontaneously. Gait normal. Hands tremulous at rest and outstretched. No asterixis. Psych: Affect: appropriate. Mood: normal. ED Treatment Course - LABORATORY CBC & Chemistry Diagram: 10/31/17 13:00 10/31/17 13:00 - RADIOLOGY Radiology Studies Ordered: Category Date Time Status RIBS-LEFT SIDE [RAD] Stat Radiology 10/31/17 12:25 Completed - Medications Given in the ED: ED Medications Discontinued Medications Generic Name Dose Route Start Last Admin Trade Name Freq PRN Reason Stop Dose Admin Lorazepam 2 mg 10/31/17 12:27 10/31/17 12:55 Ativan - PO 10/31/17 12:28 2 mg ONCE ONE Administration Medical Decision Making - Medical Decision Making *Reviewed vital signs, nursing notes, and prior visit documentation (if available). 67 y/o male complaining of left sided anterior wall chest pain s/p fall last evening. Afebrile. Vitals unremarkable. Deformity to chest wall w/o overlying skin changes. Minor abrasions to right elbow and dorsum of hand. No lacerations or active bleeding. Suspect rib fracture versus bone contusion versus soft tissue injury. Low suspicion for ACS given HPI. Will obtain plain film to further evaluate. Additionally, the pt appeared tremulous and icteric on exam. Noted h/o substance abuse in records. 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 Ordered PO ativan for symptoms. Rib plain film showed evidence of left fifth rib fracture. Age undetermined. Pt reports previous rib fracture was right-sided so suspect fracture is new and cause of pain. Pt observed breathing comfortably. AST, ALT, Alk Phos not elevated. T.Bili elevated. Will defer to PCP for outpatient work up. Discussed imaging and laboratory results with pt. Answered all questions. Provided return precautions. Pt expressed verbal understanding and agreement with plan to discharge home with outpatient follow up. Provided resident clinic referral. Encouraged pt to use OTC Advil as needed for pain. *DC/Admit/Observation/Transfer Diagnosis at time of Disposition: Contusion of ribs Qualifiers: Encounter type: initial encounter Laterality: left Qualified Code(s): S20.212A - Contusion of left front wall of thorax, initial encounter Rib fracture Qualifiers: Encounter type: initial encounter Rib fracture type: single rib Fracture type: closed Laterality: left Qualified Code(s): S22.32XA - Fracture of one rib, left side, initial encounter for closed fracture - Discharge Dispostion Disposition: HOME Condition at time of disposition: Good Decision to Admit order: No - Referrals Referrals: [facility] [Provider Group] - Patient Instructions Printed Discharge Instructions: DI for Rib Fracture, DI for Rib Contusion, How to Prevent Falls Additional Instructions: Your xray showed a rib fracture on the left side. You can take over the counter Advil as needed for pain. Take as directed on the package insert. Do not exceed the recommended dosage. Do not drink with this medication. One of your liver enzymes was elevated. You need to see a primary care doctor to have this further evaluated. I have attached a copy of the results to this packet. Take this with you to the appointment. Please follow up with a primary care physician within the next week. I have placed a referral for you to see the [facility] [place]. You will need to call to make an appointment. The number is [phone]. The address is as follows: [address] [place] [address] Go to the nearest emergency department if your condition worsens or you feel like you need additional emergency evaluation. Print Language: NIGERIAN - Post Discharge Activity
[2017-10-31 13:37] LABS: BASO % 0.6 % (0-2.0); EOS % 0.3 % (0-4.5); HEMATOCRIT 52.4 % (35.4-49); HEMOGLOBIN 17.7 GM/dl (11.7-16.9); LYMPH % 20.9 % (8-40); MCH 32.8 pg (25.7-33.7); MCHC 33.9 g/dl (32.0-35.9); MEAN CELL VOLUME 96.8 fl (80-96); MEAN PLT VOLUME 8.6 fl (7.5-11.1); MONO % 10.4 % (3.8-10.2); NEUT % 67.8 % (42.8-82.8); PLATELET COUNT 273 K/MM3 (134-434); RBC 5.41 M/mm3 (4.00-5.60); RDW 12.1 % (11.9-15.9); WHITE BLOOD COUNT 10.5 K/mm3 (4.0-10.8)
[2017-10-31 13:56] LABS: ALBUMIN 4.3 g/dl (3.5-5.0); ALK PHOS 51 U/L (32-92); ANION GAP 11 MMOL/L (8-16); BILIRUBIN,TOTAL 2.3 mg/dl (0.2-1.0); BLOOD UREA NITROGEN 14 mg/dl (7-18); CALCIUM 9.4 mg/dl (8.4-10.2); CHLORIDE 98 mmol/L (98-107); CO2 30 mmol/L (22-28); CREATININE 0.8 mg/dl (0.6-1.3); GLUCOSE,RANDOM 94 mg/dl (74-106); POTASSIUM 4.2 mmol/L (3.5-5.1); SGOT/AST 25 U/L (10-42); SGPT/ALT 19 U/L (10-40); SODIUM 139 mmol/L (136-145); TOT PROT 7.4 g/dl (6.4-8.3)
== END 2017-10-31 15:24 | disposition home or self-care (01) ==
LOC: FER 11:36
DX: S22.32XA Fracture of one rib, left side, initial encounter for closed fracture (principal); S20.212A Contusion of left front wall of thorax, initial encounter; W01.0XXA Fall on same level from slipping, tripping and stumbling without subsequent striking against object, initial encounter; Y93.89 Activity, other specified; Y92.89 Other specified places as the place of occurrence of the external cause; K21.9 Gastro-esophageal reflux disease without esophagitis
CPT/HCPCS: 36415; 71101-TC-FY; 80053; 80307; 82140; 85025; 99281-25

== ENCOUNTER 2018-06-21 07:23 | Emergency (ER) | payer OTHER, BC ==
[2018-06-21 07:36] VITALS: BP 139/76; PULSE 79; TEMP 97.5; BMI 29.9
--- NOTE | 2018-06-21 08:45 | PDOC ---
History of Present Illness - General Chief Complaint: Eye Problem Stated Complaint: L EYE REDNESS Time Seen by Provider: 06/21/18 07:46 History Source: Patient - History of Present Illness Timing/Duration: other Past History - Past Medical History Allergies/Adverse Reactions: Allergies Allergy/AdvReac Type Severity Reaction Status Date / Time No Known Allergies Allergy Verified 06/21/18 07:32 Home Medications: Ambulatory Orders Famotidine [Pepcid] 20 mg PO DAILY 07/11/16 Ibuprofen [Motrin -] 400 mg PO PRN PRN 10/31/17 Bacitracin Ophthalmic Oint - 0.5 inch ASDIR #1 tube 06/21/18 Anemia: No Asthma: No Cancer: No Cardiac Disorders: No CVA: No COPD: No CHF: No Dementia: No Diabetes: No GI Disorders: Yes (GERD) Disorders: No HTN: No Hypercholesterolemia: No Liver Disease: No Seizures: No Thyroid Disease: No Other medical history: LYMES DISEASE - Immunization History Immunization Up to Date: No - Suicide/Smoking/Psychosocial Hx Smoking History: Never smoked Have you smoked in the past 12 months: No If you are a former smoker, when did you quit?: 1979 Hx Alcohol Use: No Drug/Substance Use Hx: No Substance Use Type: Alcohol Hx Substance Use Treatment: No Review of Systems - Review of Systems Constitutional: No: Chills, Fever HEENTM: No: Eye Pain, Blurred Vision, Tearing *Physical Exam - Vital Signs Last Vital Signs Temp Pulse Resp BP Pulse Ox 97.5 F L 79 18 139/76 97 06/21/18 07:33 06/21/18 07:33 06/21/18 07:33 06/21/18 07:33 06/21/18 07:33 - Physical Exam General Appearance: Yes: Appropriately Dressed. No: Apparent Distress HEENT: positive: Normal Voice, Other (sty to L eyelid). negative: Scleral Icterus (R), Scleral Icterus (L) Integumentary: positive: Dry, Warm Neurologic: positive: Fully Oriented, Alert, Normal Mood/Affect Medical Decision Making - Medical Decision Making 06/21/18 08:35 68 yo male, no sig hx, here w. L eyelid pain and swelling since last night. No f /c. No trauma See exam L eyelid sty -dc w/ warm compress, bacitracin -optho f/u as needed *DC/Admit/Observation/Transfer Diagnosis at time of Disposition: Sty Qualifiers: Laterality: left Eyelid: upper Qualified Code(s): H00.014 - Hordeolum externum left upper eyelid - Discharge Dispostion Disposition: HOME Condition at time of disposition: Good - Prescriptions Prescriptions: Bacitracin Ophthalmic Oint - 0.5 inch ASDIR #1 tube - Referrals Referrals: Sangeeta Singh MD [Staff Physician] - - Patient Instructions Printed Discharge Instructions: DI for Hordeolum Additional Instructions: Apply warm compresses to eye as discussed Apply bacitracin and directed If symptoms persist after 2 weeks, please follow-up with Dr. Singh of ophthalmology for possible drainage - Post Discharge Activity
== END 2018-06-21 09:00 | disposition home or self-care (01) ==
LOC: JER 07:23
DX: H00.014 Hordeolum externum left upper eyelid (principal)
CPT/HCPCS: 99281-25

== ENCOUNTER 2019-03-26 10:03 | Emergency (ER) | payer OTHER, BC ==
[2019-03-26 10:16] VITALS: BP 149/79; PULSE 95; TEMP 97.5; BMI 27.3
--- NOTE | 2019-03-26 11:44 | PDOC ---
History of Present Illness - General Chief Complaint: Cold Symptoms Stated Complaint: R.O SINUS INFECTION Time Seen by Provider: 03/26/19 11:24 History Source: Patient Exam Limitations: No Limitations - History of Present Illness Initial Comments: 03/26/19 11:44 Patient is a 69-year-old male who denies any past medical history who presents to the ED with complaint of nasal congestion and postnasal drip for the last several months. He states that this has been ongoing. He denies any fevers or chills. He denies any throat pain. He denies any shortness of breath. The patient states that he believes he has a sinus infection. Of note: The patient drinks about 5 glasses of vodka on the rocks daily. He also admits to having a tremor at all times. His last drink was last evening. Past History - Past Medical History Allergies/Adverse Reactions: Allergies Allergy/AdvReac Type Severity Reaction Status Date / Time No Known Allergies Allergy Verified 03/26/19 10:16 Home Medications: Ambulatory Orders Famotidine [Pepcid] 20 mg PO DAILY 07/11/16 Ibuprofen [Motrin -] 400 mg PO PRN PRN 10/31/17 Bacitracin Ophthalmic Oint - 0.5 inch ASDIR #1 tube 06/21/18 Triamcinolone Acetonide [Nasacort] 2 sprays NS DAILY #1 bottle 03/26/19 Anemia: No Asthma: No Cancer: No Cardiac Disorders: No CVA: No COPD: No CHF: No Dementia: No Diabetes: No GI Disorders: Yes (GERD) Disorders: No HTN: No Hypercholesterolemia: No Liver Disease: No Seizures: No Thyroid Disease: No - Immunization History Immunization Up to Date: No - Psycho Social/Smoking Cessation Hx Smoking History: Never smoked Have you smoked in the past 12 months: No If you are a former smoker, when did you quit?: 1979 Hx Alcohol Use: Yes (4 DRINKS PER DAY) Drug/Substance Use Hx: No Substance Use Type: Alcohol Hx Substance Use Treatment: No Review of Systems - Review of Systems Comments:: 03/26/19 11:45 - Review of Systems Able to Perform ROS?: Yes Constitutional: No: Fever, Chills, Loss of Appetite, Night Sweats, Weakness HEENTM: No: Eye Pain, Vision changes, Ear Pain, Throat Pain, Throat Swelling, Mouth Pain, Difficulty Swallowing; Positive nasal congestion and postnasal drip Respiratory: No: Cough, Shortness of Breath, Wheezing, Sputum Production Cardiac (ROS): No: Chest Pain, Chest Tightness, Palpitations, Irregular Heart Beat, Edema ABD/GI: No: Nausea, Vomiting, Abdominal Pain, Diarrhea : No Dysuria, No Hematuria, No Frequency, No Urgency Musculoskeletal: No: Muscle Pain, Back Pain, Joint Pain, Muscle Weakness, Neck Pain Integumentary: No: Lesions, Rash Neurological: No: Headache, Numbness, Tingling, Weakness, Speech Difficulties *Physical Exam - Vital Signs Last Vital Signs Temp Pulse Resp BP Pulse Ox 97.5 F L 95 H 18 149/79 99 03/26/19 10:14 03/26/19 10:14 03/26/19 10:14 03/26/19 10:14 03/26/19 10:14 - Physical Exam 03/26/19 11:46 - Physical Exam General Appearance: Nourished, Appropriately Dressed, No Distress HEENT: EOMI, Normal Voice, No Pharyngeal Erythema, No Muffled/Hoarse voice, No Tonsillar Exudate, No Tonsillar Erythema, , Positive bilateral turbinate edema, No Rhinorrhea, Hearing Grossly Normal, TMs Normal, No TM Bulging, No TM Dullness , No TM Erythema Neck: Supple, No Lymphadenopathy (R), No Lymphadenopathy (L), No Rigidity, No Decreased range of motion Respiratory/Chest: Lungs Clear, Normal Breath Sounds. No Respiratory Distress, No Accessory Muscle Use Cardiovascular: Regular Rhythm, Regular Rate, S1, S2 Gastrointestinal/Abdominal: Normal Bowel Sounds, Soft. Non-tender, No Guarding , No Rebound, No Rigidity Musculoskeletal: Normal Inspection. No Decreased Range of Motion; Mild hand tremors appreciated. No tongue fasciculations. Extremity: Normal Capillary Refill, Normal Inspection Integumentary: Normal Color, Dry. No Rash Neurologic: flash drier operator II-XII NML intact, Fully Oriented, Alert, Normal Mood/Affect, Normal Response Medical Decision Making - Medical Decision Making 03/26/19 11:41 Assessment: Patient is a 69-year-old male with complaint of nasal congestion and postnasal drainage. Plan: -A prescription for Nasacort has been sent to the patient's pharmacy. -I have made the patient aware that there is no sign of acute infectious process. -He should follow-up with his primary doctor within 1 to 2 days for repeat evaluation and further treatment. -The patient understands and agrees with this treatment and plan and he is stable for discharge. Discharge - Discharge Information Problems reviewed: Yes Clinical Impression/Diagnosis: Rhinitis Qualifiers: Rhinitis type: chronic Qualified Code(s): J31.0 - Chronic rhinitis Condition: Stable Disposition: HOME - Additional Discharge Information Prescriptions: Triamcinolone Acetonide [Nasacort] 2 sprays NS DAILY #1 bottle - Follow up/Referral - Patient Discharge Instructions Patient Printed Discharge Instructions: DI for Allergic Rhinitis Additional Instructions: Use the nasal spray as prescribed. Be sure to see your primary doctor for this complaint within 1 to 2 days for repeat evaluation and for further treatment. - Post Discharge Activity
== END 2019-03-26 11:45 | disposition home or self-care (01) ==
LOC: JERFT 10:03
DX: J31.0 Chronic rhinitis (principal); K21.9 Gastro-esophageal reflux disease without esophagitis
CPT/HCPCS: 99282-25

== ENCOUNTER 2022-05-12 08:24 | Emergency (ER) | payer OTHER, BC ==
[2022-05-12 08:44] VITALS: BP 199/95; PULSE 83; RESP 17; TEMP 98.7; BMI 29.9
== END 2022-05-12 10:11 | disposition home or self-care (01) ==
LOC: JER 08:24
DX: J18.9 Pneumonia, unspecified organism (principal); Z20.822 Contact with and (suspected) exposure to COVID-19
CPT/HCPCS: 0241U-QW; 71046-TC-FY; 99284-25

== ENCOUNTER 2022-12-22 09:39 | Emergency (ER) | payer OTHER, BC ==
[2022-12-22 09:45] VITALS: BP 162/84; PULSE 81; RESP 18; TEMP 98.2; BMI 28.1
[2022-12-22] MEDS ORDERED: ACETAMINOPHEN 500 MG TABLET (FP) PO ONE (09:55)
[2022-12-22] MEDS ORDERED: LIDOCAINE 4% PATCH TP ONE (10:23)
[2022-12-22] MEDS: LIDOCAINE 5% TOPICAL PATCH TP ONE ×2 (10:25→10:31)
[2022-12-22] MEDS ORDERED: KETOROLAC TROMETHAMINE 30 MG/1 ML VIAL IM ONE (10:28)
[2022-12-22] MEDS ORDERED: KETOROLAC TROMETHAMINE 30 MG/1 ML VIAL ONE (10:32)
[2022-12-22] MEDS ORDERED: LIDOCAINE PATCH REMOVAL MC ONE (22:00)
== END 2022-12-22 12:08 | disposition home or self-care (01) ==
LOC: JERFT 09:39
PROC: 3E0233Z Introduction of Anti-inflammatory into Muscle, Percutaneous Approach (ICD-10-PCS; principal; 2022-12-22)
DX: S20.212A Contusion of left front wall of thorax, initial encounter (principal); W10.8XXA Fall (on) (from) other stairs and steps, initial encounter; Y92.009 Unspecified place in unspecified non-institutional (private) residence as the place of occurrence of the external cause
CPT/HCPCS: 71045-TC-FY; 71101-TC-LT-FY; 96372; 99284-25

== ENCOUNTER 2023-07-07 15:31 | Emergency (ER) | payer OTHER, BC ==
[2023-07-07 15:46] VITALS: RESP 18; BMI 28.1
[2023-07-07] MEDS ORDERED: ACETAMINOPHEN 325 MG TABLET (FP) ONE (17:11)
[2023-07-07] MEDS ORDERED: DIPHTH,PERTUSS(ACELL),TET 0.5 ML DISP.SYRIN IM ONE (17:11)
[2023-07-07] MEDS ORDERED: LIDOCAINE 4% PATCH TP ONE ×2 (17:15→19:22)
[2023-07-07] MEDS: DIPHTH,PERTUSS(ACELL),TET 0.5 ML DISP.SYRIN IM ONE (17:21)
[2023-07-07] MEDS: ACETAMINOPHEN 500 MG TABLET (FP) PO ONE (17:22)
[2023-07-07] MEDS ORDERED: BACITRACIN 0.9 GM PACKET ONE (17:36)
[2023-07-07 20:02] VITALS: BP 168/77; PULSE 70; TEMP 97.8
[2023-07-07] MEDS: LIDOCAINE 4% PATCH TP ONE (20:42)
[2023-07-08] MEDS ORDERED: LIDOCAINE PATCH REMOVAL MC SCH (06:00)
== END 2023-07-07 20:52 | disposition home or self-care (01) ==
LOC: JER 15:31
PROC: 3E0234Z Introduction of Serum, Toxoid and Vaccine into Muscle, Percutaneous Approach (ICD-10-PCS; principal; 2023-07-07)
DX: S80.02XA Contusion of left knee, initial encounter (principal); S60.511A Abrasion of right hand, initial encounter; S60.512A Abrasion of left hand, initial encounter; S60.812A Abrasion of left wrist, initial encounter; R07.89 Other chest pain; R91.8 Other nonspecific abnormal finding of lung field; V43.53XA Car driver injured in collision with pick-up truck in traffic accident, initial encounter; Z23 Encounter for immunization
CPT/HCPCS: 71046-TC-FY; 71250-TC; 73110-TC-LT-FY; 73130-TC-LT-FY; 73562-TC-LT-FY; 73700-TC-RT; 90715; 99284-25